=== PATIENT | female | born 1985 | race African-American/Black ===

== ENCOUNTER 2021-09-06 21:09 | Emergency (ER) | payer SELFPAY ==
[~2021-09-06] VITALS: Ht 170.2 cm; Wt 99.8 kg
[2021-09-06 21:21] VITALS: BP 137/86
== END 2021-09-06 22:28 | disposition home or self-care (01) ==
LOC: ER 21:11
DX: K64.9 Unspecified hemorrhoids (principal)

== ENCOUNTER 2022-02-07 10:39 | Emergency (ER) | payer SELFPAY ==
[~2022-02-07] VITALS: Ht 170.2 cm; Wt 100.0 kg
[2022-02-07 11:29] VITALS: BP 107/56
[2022-02-07 11:45] LABS: Urine Bacteria NONE SEEN /hpf (None Seen); Urine Blood Negative /uL (Negative); Urine Mucus FEW (None Seen); Urine Specific Gravity 1.028 (1.001-1.035); Urine WBC 4 /hpf (0 - 5)
[2022-02-07] MEDS ORDERED: CYCL-837 PO (12:39)
[2022-02-07] MEDS ORDERED: IBUP800T27 PO (12:39)
[2022-02-07] MEDS ORDERED: KETOROLAC TROMETH 60MG/2ML VIAL IM ONE (12:45)
== END 2022-02-07 13:21 | disposition home or self-care (01) ==
LOC: ER 10:39
DX: S39.012A Strain of muscle, fascia and tendon of lower back, initial encounter (principal); X58.XXXA Exposure to other specified factors, initial encounter; Y93.89 Activity, other specified; Y92.89 Other specified places as the place of occurrence of the external cause; Y99.8 Other external cause status
CPT/HCPCS: 81001; 81025; 96372; 99283; J1885

== ENCOUNTER 2022-05-30 19:18 | Emergency (ER) | payer SELFPAY ==
[~2022-05-30] VITALS: Ht 170.2 cm; Wt 97.5 kg
[~2022-05-30 19:18] MED LIST: CYCL-837 PO; IBUP800T27 PO
[2022-05-30] MEDS ORDERED: DexAMETHasone SOD PHOS 10MG/1ML VIAL INJ IM ONE (20:00)
[2022-05-30] MEDS ORDERED: PRED20TA2 PO (20:31)
[2022-05-30] MEDS ORDERED: PENI500T2 PO (21:07)
[2022-05-30 23:31] VITALS: BP 125/76
== END 2022-05-30 23:33 | disposition home or self-care (01) ==
LOC: ER 19:20
DX: J03.90 Acute tonsillitis, unspecified (principal)
CPT/HCPCS: 87070; 87880; 96372; 99283; J1100

== ENCOUNTER 2023-02-06 21:01 | Emergency (ER) | payer SELFPAY ==
[~2023-02-06] VITALS: Ht 170.2 cm; Wt 118.0 kg
[~2023-02-06 21:01] MED LIST changes: +IBUP-1456 PO; -IBUP800T27 PO; +PENI500T2 PO; +PRED20TA2 PO
[2023-02-06] MEDS ORDERED: IBUPROFEN 800 MG TAB PO ONE (21:45)
[2023-02-06] MEDS ORDERED: IBUP1TAB5 PO (22:05)
[2023-02-06] MEDS ORDERED: CEPH500T PO (22:05)
[2023-02-06] MEDS ORDERED: HYDROcodone-ACET 5/325MG TAB PO ONE (22:15)
[2023-02-06] MEDS ORDERED: CEPHALEXIN 250 MG CAP PO ONE (22:15)
[2023-02-07 00:10] VITALS: BP 110/69; PULSE 58; RESP 14; TEMP 97.8; O2SAT 100
== END 2023-02-07 00:18 | disposition home or self-care (01) ==
LOC: ER 21:01
DX: K02.9 Dental caries, unspecified (principal); K04.7 Periapical abscess without sinus; Z79.899 Other long term (current) drug therapy; Z79.1 Long term (current) use of non-steroidal anti-inflammatories (NSAID)

== ENCOUNTER 2023-07-16 09:39 | Emergency (ER) | payer MEDICAID, OTHER ==
[~2023-07-16] VITALS: Ht 170.2 cm; Wt 94.8 kg
[~2023-07-16 09:39] MED LIST changes: +CEPH500T PO; +IBUP1TAB5 PO
[2023-07-16 10:14] VITALS: BP 134/82; PULSE 64; RESP 20; TEMP 98.3; O2SAT 100
[2023-07-16] MEDS ORDERED: HYDROcodone-ACET 5/325MG TAB PO ONE (11:00)
[2023-07-16] MEDS ORDERED: BENZOCAINE (DENTAL) 20 % SPRAY 60ML MT ONE (11:15)
== END 2023-07-16 12:12 | disposition home or self-care (01) ==
LOC: ER 09:39
DX: K02.9 Dental caries, unspecified (principal); Z79.1 Long term (current) use of non-steroidal anti-inflammatories (NSAID); Z79.2 Long term (current) use of antibiotics; Z79.899 Other long term (current) drug therapy

== ENCOUNTER 2024-09-09 10:46 | Emergency (ER) | payer MEDICAID ==
[~2024-09-09] VITALS: Ht 170.2 cm; Wt 103.7 kg
[2024-09-09 11:33] VITALS: BP 131/90; PULSE 64; RESP 20; TEMP 98.5; O2SAT 100
[2024-09-09] MEDS ORDERED: ACE3T PO (12:32)
[2024-09-09] MEDS ORDERED: AUG875T PO (12:32)
--- NOTE | 2024-09-09 12:33 | ED.PDOC ---
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 Unable to get adequate relief with [id number] Tylenol Motrin and pain is currently rated 10/10 however she is currently driving Denies any fevers chills nausea vomiting diarrhea Chief Complaint: Tooth Pain Time Seen by MD: 11:02 Primary Care Provider: NONE Reviewed Notes: Nurses Notes, Medications, Allergies Allergies: Coded Allergies: NO KNOWN ALLERGIES (Unverified , 09/06/21) Home Meds Active Scripts Acetaminophen W/ Codeine (Tylenol W/Cod #3) 1 Tab Tb, 1 TAB PO Q6HP PRN for 7 Days, #28 TAB 0 Refills Prov:RAE DELA CRUZ [employer]ING MACHINE TENDER 09/09/24 Amoxicillin & Pot Clavulanate (AUGMENTIN TABLET) 875 Mg Tb, 875 MG PO BID for 7 Days, #14 TAB 0 Refills Prov:RAE DELA CRUZ PACKING MACHINE TENDER 09/09/24 Ibuprofen Micronized (Ibuprofen) 600 Mg Tab, 1 TAB PO Q6HR, #20 TAB as needed for pain Prov:UZMA MCDANIEL Q PACKING MACHINE TENDER 02/06/23 Cephalexin Monohydrate (Cephalexin) 500 Mg Tab, 1 TAB PO QID for 10 Days, #40 TAB Prov:UZMA MCDANIEL Q PACKING MACHINE TENDER 02/06/23 Penicillin V Potassium (Veetids) 500 Mg Tab, 1 TAB PO BID for 10 Days, #20 TAB 0 Refills Prov:JACQUELYN OROSCO [facility] 05/30/22 Prednisone (Prednisone) 20 Mg Tab, 40 MG PO DAILY for 5 Days, #10 MG 0 Refills Prov:JACQUELYN OROSCO [facility] 05/30/22 Ibuprofen (Ibuprofen) 800 Mg Tab, 1 TAB PO TID PRN, #30 TAB 0 Refills Prov:EVELINA JOHN 02/07/22 Cyclobenzaprine Hcl (Cyclobenzaprine Hcl) 5 Mg Tab, 1 TAB PO QPM PRN, #14 TAB 0 Refills Prov:EVELINA JOHN 02/07/22 Mode of Arrival: Ambulatory Past Medical History PAST MEDICAL HISTORY: Denies Surgical History: Denies all surgeries 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: No Pertinent 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 Family History Family History: Unknown Social History Smoker: Non-Smoker Alcohol: Denies ETOH Use Drugs: Denies Drug Use Lives In: Home All Other Systems: Reviewed and Negative (Per HPI) Physical Exam General Appearance: No Apparent Distress, Normal HEENT: Normal ENT Inspection, Pharynx Normal, TMs Normal Neck: Full Range of Motion, Non-Tender, Normal, Normal Inspection Respiratory: Chest Non-Tender, Lungs Clear, No Accessory Muscle Use, No Respiratory Distress, Normal Breath Sounds Cardiovascular: No Edema, No JVD, No Murmur, No Gallop, Normal Peripheral Pulses, Regular Rate/Rhythm Breast Exam: Deferred Gastrointestinal: No Organomegaly, Non Tender, No Pulsatile Mass, Normal Bowel Sounds, Soft Genitalia: Deferred Pelvic: Deferred Rectal: Deferred Extremities: No calf tenderness, Normal capillary refill, Normal inspection, Normal range of motion, Non-tender, No pedal edema Musculoskeletal : Apperance: Normal Neurologic: Alert, nanotechnologist II-XII nml as Tested, No Motor Deficits, Normal Affect, Normal Mood, No Sensory Deficits Cerebellar Function: Normal Reflexes: Normal Skin: Dry, Normal Color, Warm Lymphatic: No Adenopathy Was a procedure done? Was a procedure done?: No EENT DIFF Eye: Other X-Ray, Labs, Meds, VS Vital Signs Date Time Temp Pulse Resp B/P (MAP) Pulse Ox O2 Delivery O2 Flow Rate FiO2 09/09/24 11:33 64 20 100 Room Air 09/09/24 11:33 98.5 64 20 131/90 (104) 100 98.5 09/09/24 11:04 98.5 64 20 151/90 (110) 100 X-Ray, Labs, Meds, VS Comment On reevaluation, patient had symptomatic improvement. Patient is stable for discharge at this time. External notes reviewed. Test results and diagnostic imaging interpreted. All diagnostic findings, discharge care, education and instructions provided Follow-up with PCP in 2 to 3 days Patient verbalized understanding and agreed to treatment plan Vital signs stable, afebrile, no acute distress noted Patient ambulatory with strong steady gait Advised to return precautions for any new or worsening symptoms, return to ER immediately for re-evaluation Patient is aware that the purpose of this visit was for an acute medical emergency requiring emergent stabilization. Chronic conditions, including malignancies have not been ruled out. Patient is instructed to follow up with PCP as directed and discharge instructions for continued care and workup. If unable to arrange follow-up, patient is to return to the emergency department for reassessment. Patient (parent or legal guardian if applicable) was given verbal and written discharge instructions and acknowledges understanding. Time of 1ST Reevaluation: 12:27 Reevaluation 1ST: Improved Patient Education/Counseling: Diagnosis, Treatment Family Education/Counseling: Diagnosis, Treatment Departure 1 Departure Time of Disposition: 12:33 Impression: Primary Impression: Chipped tooth Qualified Codes: S02.5XXA - Fracture of tooth (traumatic), initial encounter for closed fracture Disposition: HOME / SELF CARE / HOMELESS Condition: Fair e-Prescriptions Acetaminophen W/ Codeine (Tylenol W/Cod #3) 1 Tab Tb 1 TAB PO Q6HP PRN for 7 Days, #28 TAB 0 Refills Prov: RAE DELA CRUZ NP 09/09/24 Amoxicillin & Pot Clavulanate (AUGMENTIN TABLET) 875 Mg Tb 875 MG PO BID for 7 Days, #14 TAB 0 Refills Prov: RAE DELA CRUZ NP 09/09/24 Critical Care Note Critical Care Time?: No Stability Stability form required: No Heart Score Heart Score: Heart Score Response (Comments) Value History N/A 0 EKG N/A 0 Age N/A 0 Risk Factors N/A 0 Troponin N/A 0 Total 0 RAE DELA CRUZ NP Sep 09, 2024 12:33
== END 2024-09-09 12:45 | disposition home or self-care (01) ==
LOC: ER 10:46
DX: S02.5XXA Fracture of tooth (traumatic), initial encounter for closed fracture (principal); X58.XXXA Exposure to other specified factors, initial encounter; Y93.89 Activity, other specified; Y92.89 Other specified places as the place of occurrence of the external cause; Y99.8 Other external cause status